=== PATIENT | male | born 1945 | race Caucasian/White ===

== ENCOUNTER 2017-10-14 11:51 | Emergency (ER) | payer MEDICARE, OTHER ==
[~2017-10-14] VITALS: Ht 175.2 cm; Wt 115.7 kg
--- NOTE | ~2017-10-14 | EKG ---
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
[2017-10-14] MEDS ORDERED: NEURONTIN300 MG PO (12:00)
[2017-10-14 12:13] LABS: BASO # 0.1 10*3/uL (0.0-0.1); EOS # 0.4 10*3/uL (0.0-0.4); EOS % 6.7 % (1.0-4.0); HEMATOCRIT 38.7 % (42.0-52.0); HEMOGLOBIN 12.4 g/dl (14.0-18.0); LYMPH # 0.9 10*3/uL (1.3-4.4); LYMPH % 14.8 % (27.0-41.0); MEAN CELL VOLUME 91.1 fl (80.0-94.0); MEAN CORPUSCULAR HGB 29.2 pg (27.0-31.0); MEAN PLATELET VOLUME 10.3 fl (9.6-12.3); MONO # 0.4 10*3/uL (0.1-1.0); MONO % 6.3 % (3.0-9.0); NEUT # 4.4 10*3/uL (2.3-7.9); PLATELET COUNT AUTOMATED 223 10*3/uL (130-400); RED BLOOD COUNT 4.25 10*6/uL (4.50-5.90); WHITE BLOOD COUNT 6.2 10*3/uL (4.8-10.8)
[2017-10-14 12:22] LABS: ACT PARTIAL THROMBO TIME 20.3 SECONDS (20.8-31.5)
[2017-10-14 12:31] LABS: ALBUMIN 3.5 gm/dl (3.1-4.5); ALKALINE PHOSPHATASE 79 U/L (45-117); BUN 23 mg/dl (7-24); CHLORIDE 104 mmol/L (98-107); CREATININE 1.32 mg/dL (0.70-1.30); SGOT/AST 26 IU/L (3-35); SGPT/ALT 20 U/L (12-78); SODIUM 139 mmol/L (136-145); TOTAL PROTEIN 7.4 gm/dL (6.4-8.2)
[2017-10-14 12:32] LABS: TROPONIN I < 0.015 ng/ml (<0.045)
[2017-10-14] MEDS ORDERED: PANTOPRAZOLE SO40 MG PO (13:10)
[2017-10-14] MEDS ORDERED: CYMBALTA60 MG PO (13:11)
[2017-10-14] MEDS ORDERED: LIPITOR10 MG PO (13:11)
[2017-10-14] MEDS ORDERED: VITAMIN D-32000 UNI1 PO (13:13)
[2017-10-14] MEDS ORDERED: ASPIRIN CHEWABL81 MG PO (13:13)
[2017-10-14] MEDS ORDERED: LASIX20 MG PO (13:14)
[2017-10-14] MEDS ORDERED: PRINIVIL10 MG PO (13:14)
[2017-10-14] MEDS ORDERED: SYMB160 INH (13:59)
[2017-10-14] MEDS ORDERED: PROAIR HFA8.5 GM INH (13:59)
[2017-10-14] MEDS ORDERED: MIRTAZAPINE15 M1 PO (14:00)
[2017-10-14] MEDS ORDERED: ANTI-ITCH222 ML T (14:01)
== END 2017-10-14 18:01 | disposition short-term general hospital (02) ==
LOC: ED 11:51
PROVIDERS: Emergency Medicine
DX: R42 Dizziness and giddiness (principal); Z79.899 Other long term (current) drug therapy; Z98.890 Other specified postprocedural states; Z79.82 Long term (current) use of aspirin